=== PATIENT | male | born 1950 | race Caucasian/White ===

== ENCOUNTER 2017-08-10 08:39 | Emergency (ER) | payer BC, MEDICARE ==
--- NOTE | 2017-08-10 09:20 | ER Document Report ---
ED General - General Chief Complaint: Problem with Urinary Catheter Stated Complaint: CATHETER PROBLEM Time Seen by Provider: 08/10/17 09:15 TRAVEL OUTSIDE OF THE [place] IN LAST 30 DAYS: No - HPI Patient complains to provider of: no drainage miller since last night Onset: Yesterday Onset/Duration: Gradual Quality of pain: No pain, Pressure - Suprapubic Severity: Moderate Pain Level: 3 Associated symptoms: None Exacerbated by: Denies Notes: pt. has chronic miller (one year) for BPH. Last changed 3 weeks ago. Pt. thinks he may have infection. 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 [employer] Family History: Reviewed & Not Pertinent Patient has suicidal ideation: No Patient has homicidal ideation: No - Past Medical History Cardiac Medical History: Reports: None Pulmonary Medical History: Reports: None EENT Medical History: Reports: None Neurological Medical History: Reports: None Endocrine Medical History: Reports: None Renal/ Medical History: Reports: Hx Benign Prostatic Hyperplasia Malignancy Medical History: Reports None GI Medical History: Reports: None Musculoskeltal Medical History: Reports None Skin Medical History: Reports None Psychiatric Medical History: Reports: None Traumatic Medical History: Reports: None Infectious Medical History: Reports: None Past Surgical History: Reports: None - Immunizations Hx Diphtheria, Pertussis, Tetanus Vaccination: Yes Review of Systems - Review of Systems Constitutional: No symptoms reported EENT: No symptoms reported Cardiovascular: No symptoms reported Respiratory: No symptoms reported Gastrointestinal: No symptoms reported Genitourinary: No symptoms reported Male Genitourinary: See HPI Musculoskeletal: No symptoms reported Skin: No symptoms reported Hematologic/Lymphatic: No symptoms reported Neurological/Psychological: No symptoms reported Physical Exam - Vital signs Vitals: Temp Pulse Resp BP Pulse Ox 97.6 F 110 H 18 144/84 H 98 08/10/17 08:43 08/10/17 08:43 08/10/17 08:43 08/10/17 08:43 08/10/17 08:43 - Notes Notes: PHYSICAL EXAMINATION: GENERAL: Well-appearing, well-nourished and in no acute distress. Sitting in a chair in the examination room. Pt. does not want to get in a gown HEAD: Atraumatic, normocephalic. EYES: Pupils equal round and reactive to light, extraocular movements intact, sclera anicteric, conjunctiva are normal. ENT: Nares patent, oropharynx clear without exudates. Moist mucous membranes. NECK: Normal range of motion, supple without lymphadenopathy LUNGS: Breath sounds clear to auscultation bilaterally and equal. No wheezes rales or rhonchi. HEART: Regular rate and rhythm without murmurs ABDOMEN: Soft, nontender, nondistended abdomen. No guarding, no rebound. No masses appreciated. Musculoskeletal: Normal range of motion, no pitting or edema. No cyanosis. NEUROLOGICAL: Cranial nerves grossly intact. Normal speech, normal gait. Normal sensory, motor exams PSYCH: Normal mood, normal affect. SKIN: Warm, Dry, normal turgor, no rashes or lesions noted. : Miller bag with minmal amount of drainage. external male genitalia WNL Course - Re-evaluation Re-evalutation: 08/10/17 10:24 Miller catheter was replaced. Nurse Shea states there was a blood clot at the end of the Miller catheter which must have been blocking it. Patient now has yellow urine in his Miller bag.No blood clots.I discussed with him the discharge plan and he was agreeable. - Vital Signs Vital signs: Temp Pulse Resp BP Pulse Ox 97.6 F 110 H 18 144/84 H 98 08/10/17 08:43 08/10/17 08:43 08/10/17 08:43 08/10/17 08:43 08/10/17 08:43 - Laboratory Laboratory results interpreted by me: 08/10/17 09:30 Urine Protein 100 H Urine Blood SMALL H Urine Urobilinogen 2.0 H Ur Leukocyte Esterase MODERATE H Discharge - Discharge Clinical Impression: Miller catheter problem, UTI (urinary tract infection) Disposition: HOME, SELF-CARE Instructions: Ciprofloxacin ([facility]), Urinary Tract Infection ([facility]) Additional Instructions: Please follow-up with your urologist as we discussed. Take antibiotics as prescribed. Return to emergency department if you have fevers inability to urinate or any other concerns Prescriptions: Ciprofloxacin HCl [Cipro 500 mg Tablet] 500 mg PO BID #10 tablet Referrals: MARIAM LEON DO [Primary Care Provider] - Follow up as needed
[2017-08-10 10:00] LABS: AMORPHOUS SEDIMENT,URINE TRACE /HPF; APPEARANCE,URINE TURBID; BILIRUBIN,URINE NEGATIVE (NEGATIVE); COLOR,URINE AMBER; GLUCOSE, URINE NEGATIVE (NEGATIVE); KETONES,URINE NEGATIVE (NEGATIVE); LEUKOCYTE ESTERASE,URINE MODERATE (NEGATIVE); NITRITE,URINE NEGATIVE (NEGATIVE); PROTEIN,URINE 100 mg/dL (NEGATIVE); URIC ACID CRYSTALS,URINE FEW /HPF; URINE SPECIFIC GRAVITY 1.013
[2017-08-10] MEDS ORDERED: CIPROFLOXACIN HCL 500 MG TABLET PO ONE (10:19)
[2017-08-10 10:39] VITALS: BP 131/85
== END 2017-08-10 10:41 | disposition home or self-care (01) ==
LOC: ER 08:39
DX: T83.9XXA Unspecified complication of genitourinary prosthetic device, implant and graft, initial encounter (principal); N39.0 Urinary tract infection, site not specified; Z87.891 Personal history of nicotine dependence
CPT/HCPCS: 99283; 51702; 87086; 87088; 81001; A9270; 87186